=== PATIENT | male | born 1990 | race African-American/Black ===

== ENCOUNTER 2016-12-24 17:06 | Emergency (ER) | payer MEDICAID, OTHER ==
[~2016-12-24] VITALS: Ht 182.9 cm; Wt 84.0 kg
[2016-12-24 17:07] VITALS: BP 148/94; PULSE 70; RESP 15; TEMP 98.2; O2SAT 98
--- NOTE | 2016-12-24 17:18 | PD ---
Physical Exam Time Seen by Provider: 17:12 Narrative 26yo M c/o tingling in L hand and foot x 3days. Reports tingling in R hand and foot, but not liek the left. Hx of anxiety x3 years; no meds. Says anxiety has been controlling his life. Reports chest pressure on/off. Experienced chest pressure earlier today; Denies now. Patient stable. Patient seen in triage. Awaiting bed placement. Data Data Last Documented VS Vital Signs Date Time Temp Pulse Resp B/P Pulse Ox O2 Delivery O2 Flow Rate FiO2 12/24/16 17:07 98.2 70 15 148/94 98 MDM Supervised Visit with JUSTINE: No Scripts No Active Prescriptions or Reported Meds Natalie Garces Dec 24, 2016 17:18
[2016-12-24 20:05] VITALS: BP 164/97; PULSE 79; RESP 16; TEMP 98.4; O2SAT 97
[2016-12-24] MEDS ORDERED: DIAZEPAM 5 MG TAB PO ONE (20:30)
[2016-12-24] MEDS ORDERED: DIAZ5 PO (20:48)
--- NOTE | 2016-12-24 20:49 | PD ---
HPI Chief Complaint: Numbness/Tingling Time Seen by Provider: 20:00 Travel History International Travel<30 days: No Contact w/Intl Traveler<30days: No Traveled to known affect area: No History of Present Illness HPI 26-year-old male arrives to the ER stating he has intermittent chest pain with some left upper extremity paresthesias. They come and go throughout the course of the day. They have been present for a couple weeks at least. He has no family history of coronary artery disease. He denies a personal history of hyperlipidemia diabetes or hypertension. He reports quitting smoking tobacco 2 weeks prior. 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 Occasionally he has panic attacks. He reports Valium was very effective for his symptoms. He has run out. He tried BuSpar at one point however reports it was not very helpful. No SI/HI. PFSH Past Medical History Anxiety: Yes Influenza Vaccination: No Past Surgical History Surgical History: No Previous Surgery Social History Alcohol Use: No Tobacco Use: No Substance Use: No Allergies-Medications (Allergen,Severity, Reaction): Coded Allergies: No Known Allergies (Unverified , 12/24/16) Reported Meds & Prescriptions Reported Meds & Active Scripts Active No Active Prescriptions or Reported Medications Review of Systems Except as stated in HPI: all other systems reviewed are Neg General / Constitutional: No: Fever Physical Exam Narrative GENERAL: 26 yo M, WNWD, mild anxiety SKIN: Warm and dry. HEAD: Atraumatic. Normocephalic. EYES: Pupils equal and round. No scleral icterus. No injection or drainage. ENT: No nasal bleeding or discharge. Mucous membranes pink and moist. NECK: Trachea midline. No JVD. CARDIOVASCULAR: Regular rate and rhythm. RESPIRATORY: No accessory muscle use. Clear to auscultation. Breath sounds equal bilaterally. GASTROINTESTINAL: Abdomen soft, non-tender, nondistended. Hepatic and splenic margins not palpable. MUSCULOSKELETAL: Extremities without clubbing, cyanosis, or edema. No obvious deformities. NEUROLOGICAL: Awake and alert. No obvious cranial nerve deficits. Motor grossly within normal limits. Five out of 5 muscle strength in the arms and legs. Normal speech. PSYCHIATRIC: Appropriate mood and affect; insight and judgment normal. Data Data Last Documented VS Vital Signs Date Time Temp Pulse Resp B/P Pulse Ox O2 Delivery O2 Flow Rate FiO2 12/24/16 20:05 98.4 79 16 164/97 97 12/24/16 19:53 Room Air Vital signs reviewed Orders Diazepam (Valium) (12/24/16 20:30) MDM Medical Decision Making Medical Screen Exam Complete: Yes Emergency Medical Condition: Yes Medical Record Reviewed: Yes Differential Diagnosis Past, generalized anxiety disorder, atypical chest pain Narrative Course EKG reveals a sinus rhythm at a rate of approximately 80 The patient is here primarily for anxiety. We had a fairly long discussion about diet and lifestyle modification. He was receptive. It seems his primary objective tonight was to obtain Valium. In order to communicate with the patient I assured him that we'll provide a short prescription however not only is it inappropriate for long-term anxiety it is also habit forming, which would predispose him to yet another ailment, benzodiazepine dependence. His is very helpful and supportive. She assures me he is not at risk for HI/SI. Fortunately the patient does demonstrate willingness to pursue diet/lifestyle modification as a primary means of anxiety management. Diagnosis Primary Impression: Anxiety Referrals: Primary Care Physician call for appointment Additional Instructions: You have a choice when it comes to health care, and we are glad that you chose [facility]. Hopefully, we have met your expectations on today's visit. You are welcome to return to [facility] at any time, as we are committed to meeting the health care needs of our community. Med/Other Pt SpecificInfo: Prescription(s) given Scripts Diazepam (Valium)5 Mg Tab5 Mg PO HS PRN (SEVERE ANXIETY OR AGITATION) #20 TAB Ref 0 Prov:Yoshi Ashley MD 12/24/16 Disposition: 01 DISCHARGE HOME Condition: Stable Yoshi Ashley MD Dec 24, 2016 20:49
[2016-12-24 21:18] VITALS: BP 156/87; PULSE 69; RESP 16; O2SAT 97
--- NOTE | 2016-12-25 19:40 | EKG ---
Date Performed: 12/24/2016 Time Performed: 20:03:46 PTAGE: 26 years EKG: Sinus rhythm Compared to prior tracing no significant change NORMAL ECG NO PREVIOUS TRACING DOCTOR: Easton James Interpretating Date/Time 12/25/2016 19:35:30
== END 2016-12-24 21:31 | disposition home or self-care (01) ==
LOC: NEPD 17:06
DX: F41.9 Anxiety disorder, unspecified (principal); R07.9 Chest pain, unspecified; R20.2 Paresthesia of skin
CPT/HCPCS: 93005

== ENCOUNTER 2017-01-28 11:00 | Emergency (ER) | payer OTHER ==
[~2017-01-28] VITALS: Ht 180.3 cm; Wt 90.0 kg
[~2017-01-28 11:00] MED LIST: DIAZ5 PO
[2017-01-28 11:02] VITALS: BP 152/92; PULSE 72; RESP 20; TEMP 97.8; O2SAT 98
--- NOTE | 2017-01-28 11:25 | PD ---
HPI . right elbow pain s/p fall Chief Complaint: Injury Time Seen by Provider: 11:22 Travel History International Travel<30 days: No Contact w/Intl Traveler<30days: No Traveled to known affect area: No History of Present Illness HPI 26-year-old male with no past medical history here with complaints of right elbow pain for the past day. Yesterday patient was running when he actually slipped and hit his right elbow. He is now complaining of pain in the right medial aspect of his elbow. He is right-hand dominant and had to come in because he is not able to work. He does have limited range of motion of the extremity. He has the capability to flex and extend, but it is limited secondary pain. He denies any numbness or tingling. He has no other complaints. PFSH Past Medical History Anxiety: Yes Social History Alcohol Use: No Tobacco Use: No Substance Use: No Allergies-Medications (Allergen,Severity, Reaction): Coded Allergies: No Known Allergies (Unverified , 12/24/16) Reported Meds & Prescriptions Reported Meds & Active Scripts Active Ibuprofen 800 Mg Tab 800 Mg PO TID Review of Systems General / Constitutional: No: Fever Eyes: No: Visual changes HENT: No: Headaches Cardiovascular: No: Chest Pain or Discomfort Respiratory: No: Shortness of Breath Gastrointestinal: No: Abdominal Pain Genitourinary: No: Dysuria Musculoskeletal: Positive: Pain (right elbow ) Skin: No Rash Neurologic: No: Weakness Psychiatric: No: Depression Endocrine: No: Polydipsia Hematologic/Lymphatic: No: Easy Bruising Physical Exam Narrative GENERAL: AAO x 3, no acute distress, Well-nourished, well-developed patient. SKIN: Warm and dry. No visible rashes or bruising. no edema or ecchymosis of right elbow HEAD: Normocephalic and atraumatic. EYES: No scleral icterus. No injection or drainage. ENT: No nasal drainage noted. Mucous membranes pink. Airway patent. NECK: Supple, trachea midline. No JVD. CARDIOVASCULAR: Regular rate and rhythm without murmurs, gallops, or rubs. RESPIRATORY: Breath sounds equal bilaterally. No accessory muscle use. No rhonchi or rales. GASTROINTESTINAL: Abdomen soft, non-tender, nondistended. EXTREMITIES: No cyanosis or edema. limited flexion and extension of right elbow due to pain, passively joint moves normally but elicits pain, tenderness to olecranon process and proximal radius/ulna, distal to radial head NEURO: scrap shear operator strength normal b/l, UE strength normal b/l, sensation intact BACK: Nontender without obvious deformity. No CVA tenderness. PSYCH: AAO x 3, normal affect. Data Data Last Documented VS Vital Signs Date Time Temp Pulse Resp B/P Pulse Ox O2 Delivery O2 Flow Rate FiO2 01/28/17 11:02 97.8 72 20 152/92 98 Room Air Orders Ibuprofen (Motrin) (01/28/17 11:30) Elbow, Complete (4 Vws) (01/28/17 11:25) ^ Saravanan Bandage (01/28/17 11:52) Support Splint (01/28/17 11:52) MDM Medical Decision Making Medical Screen Exam Complete: Yes Emergency Medical Condition: Yes Medical Record Reviewed: Yes Differential Diagnosis bone contusion, fracture, less likely dislocation Narrative Course This is a 26-year-old male here status post fall accident now with right elbow pain. He does have some pain with flexion and extension of the right elbow and point tenderness. X-ray ordered. No acute fracture. Tenderness is distal to radial head and lies more in the proximal radius Discussed findings with patient advised if pain persists, follow-up with his primary care provider. Patient given an Saravanan wrap for support and sling for rest. Ibuprofen provided for inflammation. RICE, Patient verbalized understanding of instructions, questions were answered, and thanked me for their care. I advised them if their condition worsens, please return to the nearest emergency room for further care. Diagnosis Primary Impression: Contusion of elbow, right Patient Instructions: General Instructions Departure Forms: Tests/Procedures, Work Release Enter return to work date: January 30, 2017 Additional Instructions: Rest the affected area as much as possible. Do this for the next 2 days. Ice this area for 15-20 minutes at a time. You can do this every hour or as much as tolerated. Keep this area compressed (saravanan bandage) as tolerated. Elevate this area. Use ibuprofen as needed for pain and inflammation. Please return to emergency department if your symptoms return or worsen. Follow up with your primary care provider. Take medications as prescribed. If your pain persists past 7-10 days, please follow-up with your primary care provider. Med/Other Pt SpecificInfo: Prescription(s) given Scripts Ibuprofen 800 Mg [id number] Mg PO TID #21 TAB Prov:Yoshi Ashley MD 01/28/17 Disposition: 01 DISCHARGE HOME Condition: Stable Gely Rice January 28, 2017 11:25
[2017-01-28] MEDS ORDERED: IBUPROFEN 800 MG TAB PO ONE (11:30)
--- NOTE | 2017-01-28 11:50 | RADRPT ---
EXAM DATE/TIME: 01/28/2017 11:35 [facility] COMPARISON: No previous studies available for comparison. INDICATIONS : Posterior right elbow pain since last night when he fell. MEDICAL HISTORY : None. SURGICAL HISTORY : None. ENCOUNTER: Initial ACUITY: 2 days PAIN SCORE: 10/10 LOCATION: Right elbow. FINDINGS: Four views of the right elbow demonstrate no fracture or dislocation. Both the anterior and posterior fat pads are visualized. No soft tissue abnormality or radiopaque foreign body is identified. CONCLUSION: There is a right elbow joint effusion. No fracture is visualized. If there is a persistent concern fo r radial head fracture consider dedicated radial head views. Darío Bronson MD on January 28, 2017 at 11:45 Board Certified Radiologist. This report was verified electronically.
[2017-01-28] MEDS ORDERED: IBUP800T23 PO (11:53)
== END 2017-01-28 12:17 | disposition home or self-care (01) ==
LOC: NEPK 11:00
DX: S50.01XA Contusion of right elbow, initial encounter (principal); W01.198A Fall on same level from slipping, tripping and stumbling with subsequent striking against other object, initial encounter; Y93.02 Activity, running; Y92.9 Unspecified place or not applicable
CPT/HCPCS: 73080; 99283

== ENCOUNTER 2017-02-03 16:49 | Emergency (ER) | payer OTHER ==
[~2017-02-03] VITALS: Ht 180.3 cm; Wt 80.0 kg
[~2017-02-03 16:49] MED LIST changes: -DIAZ5 PO; +IBUP800T23 PO
[2017-02-03 16:51] VITALS: BP 190/99; PULSE 118; RESP 24; TEMP 97.8; O2SAT 96
[2017-02-03 17:32] VITALS: BP 144/89; PULSE 66; RESP 22; O2SAT 96
--- NOTE | 2017-02-03 17:32 | PD ---
Physical Exam Time Seen by Provider: 17:30 Narrative 26yo M c/o R lower tooth pain for 2 weeks. Has dentist appointment February 12. Denies fever, vomiting. Requesting antibx and pain killers. Patient seen in triage. VS reviewed. Awaiting bed placement. Data Data Last Documented VS Vital Signs Date Time Temp Pulse Resp B/P Pulse Ox O2 Delivery O2 Flow Rate FiO2 02/03/17 16:51 97.8 118 24 190/99 96 Room Air [facility] Supervised Visit with JUSTINE: Natalie Lockhart February 03, 2017 17:32
[2017-02-03] MEDS ORDERED: IBUP800T23 PO (17:52)
[2017-02-03] MEDS ORDERED: AMOX875T PO (17:52)
--- NOTE | 2017-02-03 17:52 | PD ---
HPI Chief Complaint: Oral / Dental Pain or Problem Time Seen by Provider: 17:47 Travel History International Travel<30 days: No Contact w/Intl Traveler<30days: No Traveled to known affect area: No History of Present Illness HPI Patient is a 26-year-old male presenting to the emergency department for evaluation of dental pain. Patient states pain is been intermittent for the last year or more. He has an appointment with his dentist on February 12 but is concerned about the infection so he presented to the emergency department. He states the pain is aching in nature when it occurs and states it 's a 7 out of 10 at its worse. PFSH Past Medical History Anxiety: Yes Social History Alcohol Use: No Tobacco Use: No Substance Use: No Allergies-Medications (Allergen,Severity, Reaction): Coded Allergies: No Known Allergies (Unverified , 02/03/17) Reported Meds & Prescriptions Reported Meds & Active Scripts Active Ibuprofen 800 Mg Tab 800 Mg PO TID Review of Systems Except as stated in HPI: all other systems reviewed are Neg HENT: Positive: Dental Difficulties Physical Exam Narrative GENERAL: Well-nourished, well-developed patient. SKIN: Focused skin assessment warm/dry. HEAD: Normocephalic. MOUTH: Mucous membranes moist, no lesions, tongue and gums appear normal. Multiple dental caries throughout, chipped or broken teeth noted. EYES: No scleral icterus. No injection or drainage. NECK: Supple, trachea midline. No JVD or lymphadenopathy. CARDIOVASCULAR: Regular rate and rhythm without murmurs, gallops, or rubs. RESPIRATORY: Breath sounds equal bilaterally. No accessory muscle use. GASTROINTESTINAL: Abdomen soft, non-tender, nondistended. MUSCULOSKELETAL: No cyanosis, or edema. BACK: Nontender without obvious deformity. No CVA tenderness. Data Data Last Documented VS Vital Signs Date Time Temp Pulse Resp B/P Pulse Ox O2 Delivery O2 Flow Rate FiO2 02/03/17 17:32 66 22 144/89 96 Room Air 02/03/17 16:51 97.8 [facility] Medical Decision Making Medical Screen Exam Complete: Yes Emergency Medical Condition: Yes Interpretation(s) Vital Signs Date Time Temp Pulse Resp B/P Pulse Ox O2 Delivery O2 Flow Rate FiO2 02/03/17 17:32 66 22 144/89 96 Room Air 02/03/17 16:51 97.8 118 24 190/99 96 Room Air Differential Diagnosis Dentalgia versus cellulitis versus abscess versus dental caries versus other Narrative Course Patient is a 26-year-old male presenting with chronic dental pain for the last year. Patient will be provided with a prescription for antibiotics and ibuprofen. He was advised to keep appointment with dentist on the as scheduled. Patient was seen and evaluated in the emergency department on January and made no mention of a dental complaint although he states it's been going on for several weeks. Patient verbalized need to follow-up with a dentist. He was encouraged return to emergency department for any new symptoms or concerning symptoms. Patient is stable for discharge. Diagnosis Primary Impression: Toothache Additional Impression: Dental caries Referrals: Dentist On February 12 as scheduled Patient Instructions: Dental Caries (ED), General Instructions, Toothache (ED) Additional Instructions: Follow-up with your dentist Take medications as directed Return to emergency department for any new symptoms or worsening symptoms Med/Other Pt SpecificInfo: Prescription(s) given Scripts Amoxicillin 875 Mg [id number] Mg PO BID 10 Days Ref 0 Prov:Vicki Kowalski 02/03/17 Ibuprofen 800 Mg [id number] Mg PO Q6HR PRN (PAIN) #40 TAB Ref 0 Prov:Vicki Kowalski 02/03/17 Disposition: 01 DISCHARGE HOME Condition: Stable Vicki Kowalski February 03, 2017 17:52
== END 2017-02-03 18:44 | disposition home or self-care (01) ==
LOC: NEPK 16:49
DX: K08.89 Other specified disorders of teeth and supporting structures (principal); K02.9 Dental caries, unspecified
CPT/HCPCS: 99283

== ENCOUNTER 2017-06-15 12:55 | Emergency (ER) | payer OTHER ==
[~2017-06-15] VITALS: Ht 180.3 cm; Wt 90.0 kg
[~2017-06-15 12:55] MED LIST changes: +AMOX875T PO
[2017-06-15 12:58] VITALS: BP 156/94; PULSE 78; RESP 16; TEMP 98.8; O2SAT 98
--- NOTE | 2017-06-15 13:01 | PD ---
Physical Exam Date Seen by Provider: Jun 15, 2017 Time Seen by Provider: 12:58 Narrative 26 yo male here for lower back pain. Per patient it feels like "it locked up" on him. Was doing lifting at work. pain is 7/10. No falls or injuries. Happened today. Workers comp. No neuro deficits reported. Vitals are stable in triage. Awaiting bed placement. [facility] Medical Record Reviewed: Yes Supervised Visit with JUSTINE: No Heri Ceja Jun 15, 2017 13:00
--- NOTE | 2017-06-15 15:18 | PD ---
HPI Chief Complaint: Back/ Neck Pain or Injury Time Seen by Provider: 15:08 Travel History International Travel<30 days: No Contact w/Intl Traveler<30days: No Traveled to known affect area: No History of Present Illness HPI 26-year-old male presents emergency Department with complaint of his lower back "locking up" yesterday after work yesterday. Says he was doing some heavy lifting at work and his back pain exacerbated after he got home. Says his work is requesting x-rays of his low back and medical clearance for him to return back. Says he has had low back pain for many years and current symptoms are similar to symptoms he had in the past. Says left-side low back pain is worse than right at this time. Reports radiation of pain down back of his left leg. Denies paresthesias, loss of sensation, decreased range of motion, decreased strength to bilateral lower extremities. Denies difficulty ambulating. Denies encopresis, incontinence, saddle anesthesias. Denies IV drug use or cancer. Denies fever, vomiting, abdominal pain, change in urine or stool. Reports pain /. Has been taking ibuprofen for symptom management. Pain is aggravated with certain movements and twisting. Symptoms are mild in severity. No known allergies. Has no other medical complaints. No other modifying factors or associated signs and symptoms. PFSH Past Medical History Anxiety: Yes Social History Alcohol Use: No Tobacco Use: No Substance Use: No Allergies-Medications (Allergen,Severity, Reaction): Coded Allergies: No Known Allergies (Unverified , 06/15/17) Reported Meds & Prescriptions Reported Meds & Active Scripts Active Amoxicillin 875 Mg Tab 875 Mg PO BID 10 Days Ibuprofen 800 Mg Tab 800 Mg PO Q6HR PRN Ibuprofen 800 Mg Tab 800 Mg PO TID Review of Systems Except as stated in HPI: all other systems reviewed are Neg Physical Exam Narrative GENERAL: Well-nourished, well-developed black male patient, in no acute distress ; afebrile, nontoxic-appearing SKIN: Warm and dry. HEAD: Atraumatic. Normocephalic. EYES: Pupils equal and round. No scleral icterus. No injection or drainage. ENT: Mucosa pink and moist. Airway patent. NECK: Trachea midline. CARDIOVASCULAR: Regular rate. RESPIRATORY: No accessory muscle use. GASTROINTESTINAL: Flat. MUSCULOSKELETAL: Bilateral lower extremities supple and non-tense with 2+ pedal pulses and sensory intact; with full range of motion and 5/5 strength. 2 + DTRs bilaterally. Active dorsiflexion and extension of bilateral feet. Left straight leg raise is positive for low back pain. Ambulatory in room with normal gait. Sitting up in bed at 90. No obvious deformities. No clubbing. No cyanosis. No edema. BACK: No midline point tenderness on palpation of the lumbar spine. Tenderness on palpation of left lumbar paraspinal and iliosacral area. No obvious deformities. NEUROLOGICAL: Awake and alert. Oriented 3. No obvious cranial nerve deficits. Motor grossly within normal limits. Normal speech. Moves all extremities. 5/5 strength to all extremities. Sensory intact. PSYCHIATRIC: Appropriate mood and affect; insight and judgment normal. Data Data Last Documented VS Vital Signs Date Time Temp Pulse Resp B/P (MAP) Pulse Ox O2 Delivery O2 Flow Rate FiO2 06/15/17 12:58 98.8 78 16 156/94 (114) 98 Room Air MDM Medical Decision Making Medical Screen Exam Complete: Yes Emergency Medical Condition: No Differential Diagnosis Low back strain, left-sided low back pain with sciatica, acute exacerbation of chronic low back pain Narrative Course 26-year-old male, with history of chronic low back pain, history of present illness and physical exam consistent with low back strain and left-sided low back pain with sciatica. His work is requesting for him to have x-rays and medical release for him to return back to work. The patient has no midline tenderness on pronation of the lumbar spine and he is able to treat her with a normal gait. He denies IV drug use or cancer. Denies encopresis, incontinence , saddle anesthesias. I do not feel that imaging is necessary at this time and discussed this with the patient. I did offer NSAIDs and muscle relaxers and the patient declined at this time. He was provided information sheet to his health clinic for follow-up. Vital signs are stable and the patient is stable for outpatient follow-up and treatment. The patient has no urgent or emergent medical complaints. There is no emergent or urgent medical need at this time. I instructed the patient to follow up with their primary care provider. A medical screening exam was performed: At the time of evaluation the presenting medical condition was determined not to be of an emergent nature. The patient was given the option of receiving additional care, but declined. Patient was given options for additional community resources from which to obtain care. The Patient Has Been advised to seek medical attention for their presenting complaint. The patient has been advised to return to the ER at any time if an emergent condition develops. Diagnosis Primary Impression: Encounter for medical screening examination Condition: Stable Natalie Garces RD SCIENTIST Jun 15, 2017 15:18
== END 2017-06-15 15:54 | disposition left against medical advice (07) ==
LOC: NEPK 12:55
DX: M54.5 Low back pain (principal); G89.29 Other chronic pain; M79.605 Pain in left leg; Z86.59 Personal history of other mental and behavioral disorders
CPT/HCPCS: 99281